=== PATIENT | male | born 1965 | race Caucasian/White ===

== ENCOUNTER 2020-08-25 05:31 | Day surgery (SDC) ==
[2020-08-20 11:30] LABS: Basophils % 0.5 % (0.0-0.8); Eosinophils # 0.3 10*3/uL (0.0-0.87); Eosinophils % 3.6 % (0.00-10.9); Hematocrit 44.8 VOL% (42.0-52.0); Hemoglobin 14.7 GM/DL (14.0-18.0); Immature Granulocytes % 0.2 %; Immature Granulocytes Absolute 0.02 #; Lymphocytes # 2.4 10*3/uL (1.4-4.0); Lymphocytes % 28.1 % (21.2-54.2); Mean Corpuscular HGB Conc 32.8 GM/DL (32-36); Mean Corpuscular Volume 92.8 FL (87-102); Monocytes % 8.3 % (1.7-12.7); Neutrophils % 59.3 % (38.7-73.9); Platelet Count 303 T/CUMM (130-400); Red Blood Count 4.83 MC/CUMM (3.8-5.5); Red Cell Distribution Width 12.5 % (9.3-17.3); White Blood Count 8.4 T/CUMM (4-12)
[2020-08-20 11:55] LABS: Calcium 8.8 MG/DL (8.5-10.1); Osmolality,Calculated 272.7 MOS/KG (273-304)
[2020-08-25] MEDS ORDERED: FAMOTIDINE 20 MG TABLET PO ONE (06:49)
[2020-08-25] MEDS ORDERED: DIAZEPAM 5 MG TABLET PO ONE (06:49)
[2020-08-25] MEDS ORDERED: LACTATED RINGERS 1,000 ML IV SCH ×3 (07:00→08:00)
[2020-08-25] MEDS ORDERED: LIDOCAINE 1%/EPI INJ 20 ML VIAL ONE (07:07)
[2020-08-25] MEDS ORDERED: ROPIVACAINE 0.5% 30 ML VIAL ONE (07:09)
[2020-08-25] MEDS ORDERED: diphenhydrAMINE CAP 25 MG CAPSULE PO PRN (07:15)
[2020-08-25] MEDS ORDERED: LACTULOSE 20 GM/30 ML UDCUP PO PRN (07:15)
[2020-08-25] MEDS ORDERED: BISACODYL 10 MG SUPP RECTAL PRN (07:15)
[2020-08-25] MEDS ORDERED: MAGNESIUM HYDROXIDE SUSP 30 ML UDCUP PO PRN (07:15)
[2020-08-25] MEDS ORDERED: PROMETHAZINE 25 MG/1 ML VIAL IM PRN (07:15)
[2020-08-25] MEDS ORDERED: ONDANSETRON 4 MG/2 ML VIAL IV PRN (07:15)
[2020-08-25] MEDS ORDERED: MORPHINE 4 MG/1 ML VIAL IV PRN (07:15)
[2020-08-25] MEDS ORDERED: NON-FORMULARY MEDICATION (Aspirin 81 mg Tablet) PO SCH (09:00)
[2020-08-25] MEDS ORDERED: AMLODIPINE BENAZEPRIL PO SCH (09:00)
[2020-08-25] MEDS ORDERED: fentaNYL 100 MCG/2 ML VIAL ONE (10:49)
[2020-08-25] MEDS ORDERED: ONDANSETRON 4 MG/2 ML VIAL ONE (10:50)
[2020-08-25] MEDS ORDERED: LIDOCAINE 2% 5 ML VIAL ONE (10:50)
[2020-08-25] MEDS ORDERED: GLYCOPYRROLATE 0.4 MG/2 ML VIAL ONE ×2 (10:50→10:52)
[2020-08-25] MEDS ORDERED: KETOROLAC 30 MG/1 ML VIAL ONE (10:50)
[2020-08-25] MEDS ORDERED: propofoL 200 MG/20 ML VIAL IV ONE (10:50)
[2020-08-25] MEDS ORDERED: ePHEDrine 50 MG/ML VIAL ONE (10:50)
[2020-08-25] MEDS ORDERED: ACETAMINOPHEN 1,000 MG/100 ML VIAL IV ONE (10:50)
[2020-08-25] MEDS ORDERED: MIDAZOLAM 2 MG/2 ML VIAL ONE (10:50)
[2020-08-25] MEDS ORDERED: PHENYLEPHRINE 1 MG/10 ML SYRINGE IV ONE (10:51)
[2020-08-25] MEDS ORDERED: SEVOFLURANE 1 UNIT/15 MINUTE INH ONE (10:51)
[2020-08-25] MEDS ORDERED: SUCCINYLCHOLINE 200 MG/10 ML VIAL ONE (10:51)
[2020-08-25] MEDS ORDERED: ROCURONIUM 100 MG/10 ML VIAL IV ONE (10:51)
[2020-08-25] MEDS ORDERED: LACTATED RINGERS 1,000 ML IV ONE (10:52)
[2020-08-25] MEDS ORDERED: NEOSTIGMINE 10 MG/10 ML VIAL ONE (10:52)
[2020-08-25] MEDS ORDERED: ceFAZolin 1,000 MG in SYRINGE 1 EACH IV ONE (13:00)
[2020-08-25 13:29] VITALS: BP 115/67
[2020-08-25] MEDS ORDERED: ceFAZolin 2,000 MG in PREMIX 1 EACH IV SCH (14:00)
== END 2020-08-25 13:30 | disposition home or self-care (01) ==
LOC: N.OR 05:31 → N.SDSINP 05:31 → N.OR 13:30
PROVIDERS: ATTEND Orthopaedic Surgery